=== PATIENT | female | born 1985 | race Caucasian/White ===

== ENCOUNTER → 2020-01-01 10:30 | Outpatient (BNVA) | payer OTHER, SELFPAY | PROVIDERS: Visit Provider Advanced Practice Midwife | DX: Z76.89 Persons encountering health services in other specified circumstances (principal) ==

== ENCOUNTER 2020-01-25 09:55 | Outpatient (REF) | payer OTHER, SELFPAY ==
[2020-02-17 08:42] LABS: HPV mRNA E6/E7 rflx Not Detected (Not Detected)
== END 2020-01-25 09:56 | disposition home or self-care (01) ==
LOC: HO.LNP 09:55
PROVIDERS: Visit Provider Advanced Practice Midwife
DX: Z39.1 Encounter for care and examination of lactating mother (principal); Z30.09 Encounter for other general counseling and advice on contraception; O71.4 Obstetric high vaginal laceration alone
CPT/HCPCS: 87624; 87625; 88142

== ENCOUNTER 2020-04-04 08:16 | Outpatient (REF) | payer OTHER, SELFPAY | END 2020-04-04 08:17 | disposition home or self-care (01) | LOC: HO.LAB 08:16 | PROVIDERS: Visit Provider Advanced Practice Midwife | DX: Z13.89 Encounter for screening for other disorder (principal) ==

== ENCOUNTER 2023-03-05 09:17 | Outpatient (AMB) | payer OTHER, SELFPAY ==
--- NOTE | 2023-03-05 12:06 | MHC.OFFWIV ---
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 Her son recently had a similar illness. She has been out of work since Wednesday. Denies fever/chills. She has been developing some ear pressure/pain. Denies any respiratory distress. [facility] Surgical History Hx of wisdom tooth extraction Family History Paternal Grandfather Hx of cardiovascular disorder Paternal Grandmother Family history of hypertension Social History Alcohol intake: current Alcohol intake frequency: holidays/special occasions only Patient Tobacco Use Status: Never used Tobacco Gender identity: Female Female Reproductive History Menstrual Age of Menarche: 12 Review of Systems Const All systems reviewed & are unremarkable except as noted in HPI and below Physical Exam Vital Signs: Last Vital Signs Temp 97.7 F 03/05/23 12:09 Pulse 71 03/05/23 12:09 BP 116/64 03/05/23 12:09 Pulse Ox 97 03/05/23 12:09 Oxygen Delivery Method Room Air 03/05/23 12:09 BMI result Body Mass Index 30.5 Const General: cooperative and no acute distress HEENT Head: Yes normal to inspection Ears: hearing grossly normal bilaterally and TM abnormal (no erythema however TMs are dull and mildly bulging) General nose exam: Normal external nose present Mouth: Normal oral and palatal mucosa present Throat: Yes posterior oropharynx normal Neck Neck: Yes no lymphadenopathy Resp Effort & Inspection: normal respiratory effort and Actively coughing Quality: dry Auscultation: clear to auscultation bilaterally Cardio Palpation: normal PMI Rate: regular rate Rhythm: regular rhythm Skin General skin exam: no rashes or lesions noted Extrem General: Yes capillary refill normal and Yes no clubbing, cyanosis or edema Psych Mental Status: mental status grossly normal Results AMB Rapid Strep AMB Rapid Strep Negative Last Edit by Fani Love CMA on 03/05/23 12:54 Assessment & Plan Assessment & Plan (1) Upper respiratory infection: Code(s): J06.9 - Acute upper respiratory infection, unspecified Plan: Symptoms consistent with viral illness. Reviewed ongoing conservative treatment, rest, hydration. Work note provided. Rapid strep in the office was negative. Covid/Flu/RSV swab obtained. (2) Bilateral otitis media: Code(s): H66.93 - Otitis media, unspecified, bilateral Plan: We discussed treatment, and patient would like to see if she continues to improve with time and conservative measures. She is going to fill prescription if her ear pain/pressure worsens. We reviewed indications, use, possible, s/e. She will return to the clinic if she does not improve following treatment. She agrees to plan. Orders: Orders AMB Rapid Strep Screen Today J02.9 - Acute pharyngitis, unspecified SARS-CoV2/FLU/RSV Today J06.9 - Acute upper respiratory infection, unspecified Medications: New amoxicillin-pot clavulanate 875-125 mg 1 tab PO BID 7 days 14 tabs 0RF H66.93 - Otitis media, unspecified, bilateral Coding Level of Care Code Est Pt Level 3 (96010) Diagnoses Upper respiratory infection J06.9 Bilateral otitis media H66.93
[2023-03-05 12:09] VITALS: BP 116/64; PULSE 71; TEMP 36.5; O2SAT 97; BMI 30.5
== END 2023-03-05 13:08 | disposition home or self-care (01) ==
PROVIDERS: Visit Provider Nurse Practitioner Family
DX: J06.9 Acute upper respiratory infection, unspecified (principal); H66.93 Otitis media, unspecified, bilateral; J02.9 Acute pharyngitis, unspecified
CPT/HCPCS: 87880; 99213

== ENCOUNTER 2023-03-05 12:50 | Outpatient (REF) | payer OTHER, SELFPAY ==
[2023-03-05 17:07] LABS: Influenza A PCR NEGATIVE (Negative); Influenza B PCR NEGATIVE (Negative); Resp Syncy Virus RNA Qual PCR NEGATIVE (Negative); SARS COV2 PCR INHOUSE NEGATIVE (Negative)
== END 2023-03-05 12:51 | disposition home or self-care (01) ==
LOC: HO.LAB 12:50
PROVIDERS: Visit Provider Nurse Practitioner Family
DX: Z11.52 Encounter for screening for COVID-19 (principal); J06.9 Acute upper respiratory infection, unspecified
CPT/HCPCS: 0241U